=== PATIENT | female | born 1980 | race Caucasian/White ===

== ENCOUNTER 2021-11-24 20:29 | Emergency (ER) | payer OTHER ==
[2021-11-24 21:03] LABS: HEMOGLOBIN 13.2 gm/dl (12.3-15.3); RED BLOOD COUNT 4.18 M/UL (4.00-5.10); WHITE BLOOD COUNT 11.7 K/UL (4.5-11.0)
[2021-11-24 21:29] LABS: BUN/CREATININE RATIO 12 (0-10)
== END 2021-11-25 01:54 | disposition home or self-care (01) ==
LOC: ER1 20:29
PROVIDERS: Physician Assistant
DX: R07.89 Other chest pain (principal); R00.2 Palpitations
CPT/HCPCS: 71045; 80053; 82550; 82553; 83874; 84439; 84443; 84484; 85025; 93005; 99285